=== PATIENT | male | born 1990 | race Caucasian/White ===

== ENCOUNTER 2016-08-04 19:13 | Emergency (ER) | payer OTHER ==
[~2016-08-04] VITALS: Ht 177.8 cm; Wt 63.9 kg
[2016-08-04] MEDS ORDERED: LIDOCAINE 1%-EPI 1:100K, 30ML ONE (19:29)
[2016-08-04] MEDS ORDERED: LIDOCAINE 1%-EPI 1:100K, 20ML SQ ONE (19:30)
[2016-08-04 20:16] VITALS: BP 134/72
== END 2016-08-04 20:18 | disposition home or self-care (01) ==
LOC: ED 20:00
DX: L02.11 Cutaneous abscess of neck (principal)
CPT/HCPCS: 10060

== ENCOUNTER 2016-11-14 11:59 | Emergency (ER) | payer OTHER ==
[~2016-11-14] VITALS: Ht 175.3 cm; Wt 63.1 kg
[2016-11-14 12:00] VITALS: BP 136/78
[2016-11-14] MEDS ORDERED: IBUPROFEN 200 MG TABLET PO ONE (12:30)
[2016-11-14] MEDS ORDERED: IBUPROFEN 200 MG TABLET ONE (12:32)
== END 2016-11-14 12:58 | disposition home or self-care (01) ==
LOC: ED 12:50
DX: M79.632 Pain in left forearm (principal)
CPT/HCPCS: 99284